=== PATIENT | female | born 1955 | race African-American/Black ===

== ENCOUNTER 2016-11-16 22:33 | Emergency (ER) | payer OTHER ==
[~2016-11-16 22:33] MED LIST: ADVAIR 250-501 EAC1 IH; COREG3.125 MG PO; FLEXERIL10 MG PO; FUROSEMIDE40 MG PO; HYDROCODON-ACE1 EAC5 PO; LISINOPRIL10 MG PO; MONTELUKAST SOD10 MG PO; NAPROXEN PO; NASONEX; PRILOSEC20 MG PO; VENTOLIN HFA; VITAMIN D250000 UNIT PO; ZOLPIDEM TARTRAT5 M1 PO; ZYRTEC10 M2 PO
== END 2016-11-16 22:35 | disposition home or self-care (01) ==
LOC: CED 22:33
DX: M54.41 Lumbago with sciatica, right side (principal); I10 Essential (primary) hypertension
CPT/HCPCS: 99282; J2270